=== PATIENT | male | born 1975 | race Caucasian/White ===

== ENCOUNTER → 2021-07-02 | Outpatient (CLI) | payer OTHER | LOC: LAB 10:36 | PROVIDERS: ATTEND Otolaryngology | DX: Z01.812 Encounter for preprocedural laboratory examination (principal); Z20.822 Contact with and (suspected) exposure to COVID-19 | CPT/HCPCS: U0003 ==

== ENCOUNTER → 2021-07-06 | Day surgery (SDC) | payer OTHER ==
[~2021-07-06] MED LIST: 0.9 % SODIUM CHLORIDE 10 ML DISP.SYRIN. IV ONE; FAMOTIDINE 20 MG/2 ML VIAL IVP ONE; GELATIN SPONGE SIZE 12-7MM SPONGE. ONE; GELATIN SPONGE SIZE 12-7MM SPONGE. TP ONE; IV RINGERS SOLUTION,LACTATED 1,000 ML IV SCH; KETOROLAC 30 MG/ML VIAL. ONE; LIDOCAINE 1%/EPI 1:100,000 20 ML VIAL. IJ ONE; LIDOCAINE 1%/EPI 1:100,000 20 ML VIAL. ONE; LIDOCAINE 2% PF 5 ML VIAL. ONE; MIDAZOLAM HCL PF 2 MG/2 ML VIAL. IVP PRN; MINERAL OIL/PETROLATUM,WHITE OPHTH OINT 3.5GM TUBE. ONE; ONDANSETRON PF 4 MG/2 ML VIAL. IVP ONE; ONDANSETRON PF 4 MG/2 ML VIAL. ONE; OXYMETAZOLINE 0.05% NASAL SPRAY 30ML BOTTLE. NS ONE; PROPOFOL 10,000 MCG/ML (20ML) VIAL IV ONE; SEVOFLURANE 61 TO 120 MINUTES. IH ONE; SUCCINYLCHOLINE 200 MG/10 ML VIAL. ONE; ceFAZolin SODIUM 2 GM in IV DEXTROSE 5% 50 ML IV ONE
[2021-07-06 16:13] VITALS: BP 129/92
--- NOTE | 2021-07-06 18:45 | OP ---
DATE OF SURGERY: 07/06/2021 PREOPERATIVE DIAGNOSES: Nasal obstruction from a deviated nasal septum and turbinate hypertrophy. POSTOPERATIVE DIAGNOSES: Nasal obstruction from a deviated nasal septum and turbinate hypertrophy, and the presence of nasal polyps. ANESTHESIA: General anesthetic. ESTIMATED BLOOD LOSS: Approximately 25-30 mL. DESCRIPTION OF PROCEDURE: The patient was brought to the operating room and placed on the operating table in the supine position. He was given general anesthetic. When he was safely intubated and vital signs stable, the table was rotated 90 degrees. His nose was then decongested first applying topical Afrin nasal spray and then cleaned the nose with povidine Iodine on each side after which cottonoids containing Afrin were placed in the nose and the face was then prepped and draped after sterile fashion. The interior of the nasal cavity was then observed and the deviation of the septum was significant into the right side of the nose as previously noted causing significant obstruction. In the left side of the nose, there was compensatory turbinate hypertrophy along with a nasal septal spur that impacted the posterior portion of the inferior turbinate in the left side. The inferior turbinates were then treated by placing approximately 1-2 mL of normal saline in the anterior one-third and then using a Coblator wand to apply radiofrequency energy and contract the turbinates. This was accomplished on both sides in the inferior turbinate. The septum was then corrected by creating a curvilinear incision along the mucocutaneous border dissecting down to the mucoperichondrium and elevating it from the cartilage accomplishing that posteriorly at mid position of the cartilaginous septum, creating a crossover incision and then isolating the septal spur, it was removed with Blakesley forceps providing a more midline structure to the nasal septum. This then allowed better examination of the right side of the nose with release of the obstruction and the middle turbinate was noted to be enlarged and posterior to that we found a cluster of polypoid tissue. Additional vasoconstrictor was applied to the interior of the nose isolating these polypoid structures and they were removed then using a Blakesley forceps. With complete removal and control of bleeding in the right side, the left side was reexamined and mucosal membranes were repositioned and then the nasal septum was cross hatched on the cartilaginous portion in order to give more flexibility and to move the septum to the midline. The mucous membrane of the nasal passage was then reapproximated using 4-0 chromic suture, this was accomplished with a crossover placement of the suture on each side, which allowed the mucosa to become secured to the nasal septum. The incision site was closed in a similar fashion. The right side of the nose was then reexamined and the tuft of tissue, which had the polyps attached to was secure and stable. There was no active bleeding occurring, some crusted debris was then identified and removed from the middle meatus, which could represent maxillary drainage. The nasopharynx was then suctioned completely free of blood and Gelfoam packing was placed in the nose and the procedure was completed. The patient was recovered from his anesthesia and taken to recovery room in stable condition. CLAIRE DR: Jabari TID: [id number]
== END | disposition home or self-care (01) ==
LOC: SURG 11:38 → EDUNIT# 13:00
PROVIDERS: ATTEND Otolaryngology
DX: J34.2 Deviated nasal septum (principal); J34.89 Other specified disorders of nose and nasal sinuses; J34.3 Hypertrophy of nasal turbinates; J33.9 Nasal polyp, unspecified
CPT/HCPCS: 30520; 30801; J0171; J2250; J3010; J7120; J0330; J1885; J2405; J2704; J2001